=== PATIENT | female | born 1985 ===

== ENCOUNTER 2023-05-19 14:20 | Outpatient (CLI) | payer OTHER, SELFPAY ==
--- NOTE | ~2023-05-19 | CT_ITS ---
EXAMINATION: CT sinus wo con DATE: 05/19/2023 14:35 INDICATION: Deviated septum. Headaches. Congestion and drainage. Dryness. TECHNIQUE: Computed tomography (CT) of the paranasal sinuses was performed without intravenous contra st. The dose-length product was 296.82 mGy-cm. Automated exposure control and iterative reconstructio n technique were employed. COMPARISON: None FINDINGS: There is leftward nasal septal deviation. There is right-sided fartun bullosa. No significa nt mucosal thickening. Ostiomeatal units are patent. Mastoids are pneumatized. IMPRESSION: 1. No significant sinus disease. Reviewed, dictated and finalized at location A.
== END 2023-05-19 14:21 ==
PROVIDERS: PCP Nurse Practitioner Family; Visit Provider Nurse Practitioner Family
DX: J34.2 Deviated nasal septum (principal)
CPT/HCPCS: 70486